=== PATIENT | male | born 1965 | race Caucasian/White ===

== ENCOUNTER 2017-08-11 15:20 | Inpatient (IN) | payer OTHER ==
[~2017-08-11] VITALS: Ht 175.3 cm; Wt 68.9 kg
[2017-08-11 15:46] LABS: BASOPHIL COUNT 0.1 K/uL (0-0.1); EOSINOPHIL (%) 1.9 % (0-5); EOSINOPHIL COUNT 0.2 K/uL (0-0.3); HEMATOCRIT 43.7 % (38.0-50.0); IMMATURE GRANULOCYTE (%) 0.3 % (0.0-0.7); INSTRUMENT ABS NEUTROPHIL CT 6.8 K/uL; LYMPHOCYTE COUNT 1.9 K/uL (1.0-2.8); MCH 30.8 PG (29.0-34.0); MCHC 34.1 G/DL (30.0-36.0); MCV 90.3 FL (86-99); MEAN PLAT.VOLUME 12.4 uM^3 (9.0-12.4); MONOCYTE (%) 6.3 % (3-12); MONOCYTE COUNT 0.6 K/uL (0-0.8); NEUTROPHIL (%) 71.3 % (45-76); NEUTROPHIL COUNT 6.8 K/uL (1.8-6.4); PLATELET COUNT 199 K/uL (156-360); RBC DIS.WIDTH-CV 11.8 % (11.8-14.6); RBC DIS.WIDTH-SD 38.8 % (39-53); RED BLOOD COUNT 4.84 M/uL (4.00-5.50); WHITE BLOOD COUNT 9.6 K/uL (4.1-10.2)
[2017-08-11 15:53] LABS: CHLORIDE 103 mEq/L (99-109); POTASSIUM 3.7 mEq/L (3.7-5.4); SODIUM 135 mEq/L (136-147)
[2017-08-11 15:56] LABS: GLUCOSE 210 mg/dL (70-99)
[2017-08-11 15:57] LABS: ANION GAP 10 MEQ/L (2-14)
[2017-08-11 15:58] LABS: TOTAL BILIRUBIN 0.8 mg/dL (0.0-1.0)
[2017-08-11 15:59] LABS: GFR ESTIMATE (CALCULATED) > 59 mL/min/; SERUM ETHYL ALCOHOL < 10 mg/dL
[2017-08-11 16:00] LABS: ALKALINE PHOSPHATASE 81 IU/L (3-129)
[2017-08-11 16:01] LABS: UREA NITROGEN (BUN) 17 mg/dL (9-23)
[2017-08-11 16:03] LABS: SALICYLATE < 5.0 MG/DL (15-30)
[2017-08-11 17:32] LABS: ADD MIUA? NO; BILIRUBIN NEGATIVE; BLOOD NEGATIVE; COLOR YELLOW ((YELLOW)); GLUCOSE (STRIP) 50; KETONES 5; LEUKOCYTES NEGATIVE; NITRITE NEGATIVE; PROTEIN (STRIP) NEGATIVE; SPECIFIC GRAVITY 1.008 (1.000-1.030); UROBILINOGEN 0.2 MG/DL (0.2-1.0)
[2017-08-11 17:40] LABS: AMPHETAMINE NEGATIVE (500 ng/mL); BARBITURATES NEGATIVE (200 ng/mL); BENZODIAZEPINES NEGATIVE (150 ng/mL); COCAINE NEGATIVE (150 ng/mL); INTERNAL CONTROLS VALID? YES; METHADONE NEGATIVE (200 ng/mL); METHAMPHETAMINE NEGATIVE (500 ng/mL); OPIATES (MORPHINE) NEGATIVE (100 ng/mL); OXYCODONE NEGATIVE (100 ng/mL); PHENCYCLIDINE NEGATIVE (25 ng/mL); PROPOXYPHENE NEGATIVE (300 ng/mL); THC CANNABINOIDS NEGATIVE (50 ng/mL); TRICYCLIC ANTIDEPRESSANTS NEGATIVE (300 ng/mL); UCUL ADDED? NO
[2017-08-11 18:20] VITALS: BP 124/82
[2017-08-12 08:15] VITALS: BP 113/57
[2017-08-12 15:55] VITALS: BP 121/66
[2017-08-13 07:54] VITALS: BP 99/53
[2017-08-13 15:13] VITALS: BP 106/61
[2017-08-14 08:35] VITALS: BP 105/58
[2017-08-14] MEDS ORDERED: BUPROPION HCL100 M1 PO (08:53)
== END 2017-08-14 12:02 | disposition home or self-care (01) | DRG 885 ==
LOC: EME 15:20 → EDOF 16:52 → 1WEST 16:52 → ENRESERV 17:58 → 1WEST 18:14
PROVIDERS: Emergency Medicine
DX: F33.9 Major depressive disorder, recurrent, unspecified (principal); F41.8 Other specified anxiety disorders; F17.200 Nicotine dependence, unspecified, uncomplicated; Z87.828 Personal history of other (healed) physical injury and trauma
CPT/HCPCS: 80053; 81003; 85025; 90837; 97150 GO; 97165 GO; 99281; 99285; G0480; Q0177